=== PATIENT | female | born 1985 | race Two or more races ===

== ENCOUNTER 2020-08-29 12:54 | Outpatient (CLI) | payer OTHER | END 2020-08-29 12:59 | disposition home or self-care (01) | LOC: MAMO-SONO | PROVIDERS: ATTEND Obstetrics & Gynecology Gynecology | DX: N64.4 Mastodynia (principal); Z12.31 Encounter for screening mammogram for malignant neoplasm of breast ==

== ENCOUNTER 2022-08-19 09:46 | Outpatient (CLI) | payer OTHER | END 2022-08-19 10:29 | disposition home or self-care (01) | LOC: NST 09:46 | PROVIDERS: ATTEND Obstetrics & Gynecology Maternal & Fetal Medicine | DX: Z34.83 Encounter for supervision of other normal pregnancy, third trimester (principal) ==

== ENCOUNTER 2022-08-20 08:36 | Outpatient (CLI) | payer OTHER | END 2022-08-20 09:29 | disposition home or self-care (01) | LOC: NST 08:36 | PROVIDERS: ATTEND Obstetrics & Gynecology Maternal & Fetal Medicine | DX: Z34.83 Encounter for supervision of other normal pregnancy, third trimester (principal) ==